=== PATIENT | male | born 1985 | race Caucasian/White ===

== ENCOUNTER 2024-03-03 12:35 | Emergency (ER) | payer SELFPAY ==
[2024-03-03] VITALS (15 sets, daily range): BP systolic 99–118; BP diastolic 62–85
[~2024-03-03] VITALS: Ht 180.3 cm; Wt 70.5 kg
[2024-03-03] MEDS ORDERED: LIDOCAINE W/ EPINEPHRINE 10 MG/ML INJ STI ONE (13:05)
[2024-03-03] MEDS ORDERED: Diph, Acellular Pertussis, Tet 0.5 ML/VIAL (Tdap) SDV IM ONE (13:05)
[2024-03-03] MEDS ORDERED: IBUPROFEN 600 MG/TAB PO ONE (15:05)
[2024-03-03] MEDS ORDERED: oxyCODONE 5MG/ ACETAMINOPHEN 325MG TAB PO ONE (15:05)
[2024-03-03] MEDS ORDERED: CEPHALEXIN MONOHYDRATE 500 MG/CAP PO ONE (15:45)
[2024-03-03] MEDS ORDERED: PERCOCET 5/325M1 TAB PO (15:48)
[2024-03-03] MEDS ORDERED: KEFLEX500 MG PO (15:48)
== END 2024-03-03 16:30 | disposition home or self-care (01) | DRG 605 ==
LOC: ED 12:35
PROC: 0HQDXZZ Repair Right Lower Arm Skin, External Approach (ICD-10-PCS; principal; 2024-03-03)
DX: S51.811A Laceration without foreign body of right forearm, initial encounter (principal); W11.XXXA Fall on and from ladder, initial encounter; Y93.H3 Activity, building and construction; Y92.009 Unspecified place in unspecified non-institutional (private) residence as the place of occurrence of the external cause; Y99.0 Civilian activity done for income or pay